=== PATIENT | male | born 1980 | race Caucasian/White ===

== ENCOUNTER 2016-12-01 10:06 | Outpatient (CLI) ==
[2014-01-11 11:22] VITALS: BMI 32.8
--- NOTE | 2016-12-01 10:30 | DI ---
EXAM: Two views of the chest. History: Cough. Comparison: Chest radiograph 01/11/2014 Findings: Heart size is within normal limits. No focal consolidation. Question small nodule within the right upper lobe versus artifact. No appreciable pleural fluid and no pneumothorax. No acute os seous abnormalities. Impression: No acute cardiopulmonary process. Question small nodule within the right upper lobe vers us artifact. If symptoms persist, recommend further evaluation with high-resolution chest CT.
[2016-12-01 10:37] LABS: BASOPHILS % (AUTO) 0.3 % (0.0-3.0); EOSINOPHILS # (AUTO) 0.1 K/ul (0.0-0.7); EOSINOPHILS % (AUTO) 0.4 % (0.0-7.0); HEMATOCRIT 44.4 % (42.0-52.0); HEMOGLOBIN 15.6 g/dl (14.0-18.0); IMMATURE GRANULOCYTE % (AUTO) 0.4 % (0.0-5.0); LYMPHOCYTES # (AUTO) 2.5 K/uL (0.60-3.4); MEAN CORPUSCULAR HEMOGLOBIN 30.1 pg (27.0-31.0); MEAN CORPUSCULAR HGB CONC 35.1 (31.8-35.4); MEAN CORPUSCULAR VOLUME 85.5 fl (80.0-94.0); MONOCYTES # (AUTO) 0.8 K/uL (0.4-2.0); MONOCYTES % (AUTO) 5.3 (0-10); NEUTROPHILS # (AUTO) 10.7 K/ul (2.0-6.9); NEUTROPHILS % (AUTO) 75.6; PLATELET COUNT 288 10^3/uL (140-440); RED BLOOD COUNT 5.19 10^6/ul (4.70-6.10); WHITE BLOOD COUNT 14.13 K/ul (4.2-10.2)
[2016-12-01 10:52] LABS: MONO INTERNAL QC INTERNAL QC VALID
[2016-12-01 11:19] LABS: ALBUMIN 4.2 g/dL (3.4-5.0); ALBUMIN/GLOBULIN RATIO 1.11; ANION GAP 14.7; BILIRUBIN,TOTAL 0.92 mg/dL (0.00-1.20); BUN/CREATININE RATIO 12.72; CHOL/HDL RATIO 3.9 (4.5-6.4); CREATININE 1.1 mg/dL (0.60-1.10); POTASSIUM 3.7 mmol/L (3.5-5.1)
[2016-12-01 12:08] LABS: FLU INTERNAL QC INTERNAL QC VALID; RAPID FLU A NEGATIVE (NEGATIVE); RAPID FLU B NEGATIVE (NEGATIVE)
== END 2016-12-01 10:07 | disposition home or self-care (01) ==
LOC: RAD 10:06
PROVIDERS: ATTEND Nurse Practitioner Family
DX: R05 Cough (principal); R50.9 Fever, unspecified; R53.83 Other fatigue; R53.1 Weakness; R11.2 Nausea with vomiting, unspecified
CPT/HCPCS: 36415; 80053; 80061; 84443; 85025; 86308; 87651; 87804; 87880

== ENCOUNTER 2017-09-21 19:31 | Emergency (ER) ==
[2017-09-21 19:34] VITALS: BP 115/78; TEMP 97.8; BMI 30.4
[2017-09-21] MEDS ORDERED: TORADOL IM STA (19:40)
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
--- NOTE | 2017-09-21 20:19 | DI ---
Exam: Right knee four view HISTORY: Right knee pain Findings / Impression: No significant bony or articular abnormality. No significant surrounding sof t tissue abnormality. Negative exam.
--- NOTE | 2017-09-21 20:22 | DI ---
Exam: Right ankle 3 views History: Injury and pain Findings/Impression: No significant aroldo or articular abnormality. Negative exam.
--- NOTE | 2017-09-21 20:24 | DI ---
Exam: Right foot three-view HISTORY: Injury and pain Findings / impression: No bony or articular abnormality. Negative exam.
== END 2017-09-21 20:34 | disposition home or self-care (01) ==
LOC: ED 19:31
DX: S93.601A Unspecified sprain of right foot, initial encounter (principal); S89.91XA Unspecified injury of right lower leg, initial encounter; W20.8XXA Other cause of strike by thrown, projected or falling object, initial encounter; F17.210 Nicotine dependence, cigarettes, uncomplicated
CPT/HCPCS: 96372; 99283

== ENCOUNTER 2017-09-29 15:45 | Outpatient (CLI) ==
--- NOTE | 2017-09-29 16:44 | US ---
EXAM: Right lower extremity venous Doppler History: Right lower extremity pain and tenderness. Technique: Multiple sonographic images through the right lower extremity were obtained. Color duple x Doppler was used to interrogate vascular flow. Findings: The right common femoral, greater saphenous, profunda, superficial femoral, popliteal, peroneal, post erior tibial and anterior tibial veins demonstrate spontaneous flow with normal compression and wolfgang l augmentation. Impression: No sonographic evidence for deep venous thrombosis.
== END 2017-09-29 15:46 | disposition home or self-care (01) ==
LOC: RAD 15:45
PROVIDERS: ATTEND Nurse Practitioner Family
DX: S89.91XA Unspecified injury of right lower leg, initial encounter (principal); M79.604 Pain in right leg; M79.89 Other specified soft tissue disorders; M79.674 Pain in right toe(s); Z72.0 Tobacco use; T14.8XXA Other injury of unspecified body region, initial encounter
CPT/HCPCS: 36415; 80053; 80061; 84550; 85025

== ENCOUNTER 2017-12-24 18:39 | Emergency (ER) ==
[2017-12-24 18:43] VITALS: BP 151/90; TEMP 99.9; BMI 24.4
[2017-12-24] MEDS ORDERED: DILAUDID 1 MG/ML SYRINGE IM STA (19:22)
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
== END 2017-12-24 19:44 | disposition home or self-care (01) ==
LOC: ED 18:39
DX: S31.139A Puncture wound of abdominal wall without foreign body, unspecified quadrant without penetration into peritoneal cavity, initial encounter (principal); W45.8XXA Other foreign body or object entering through skin, initial encounter; Z98.890 Other specified postprocedural states; F17.210 Nicotine dependence, cigarettes, uncomplicated
CPT/HCPCS: 96372; 99282

== ENCOUNTER 2018-03-16 17:08 | Emergency (ER) ==
[2018-03-16 17:14] VITALS: BP 131/85; TEMP 97.5; BMI 29.2
[2018-03-16] MEDS ORDERED: LIDOCAINE HCL 1% SDV SUBCUT STA (17:17)
--- NOTE | 2018-03-16 17:28 | ED.PDOC ---
General ED Provider: Dr. GILDA HUNTER Chief Complaint: Finger Laceration Stated Complaint: laceration left thumb and hand on palmar side Time Seen by Physician: 17:17 (see photos seen with codi at all times photos attached ) Mode of Arrival: Walk-In Information Source: Patient, Family Exam Limitations: No limitations Primary Care Provider: TACOS DRISCOLL Nursing and Triage Documentation Reviewed and Agree: Yes Does patient meet sepsis criteria?: No System Inflammatory Response Syndrome: Not Applicable Sepsis Protocol: For patient's 13 years and over: Temp is 96.8 and below OR 101 and greater Pulse >90 BPM Resp >20/minute Acutely Altered Mental Status Are patient's symptoms suggestive of a new infection, such as: -Pneumonia -Skin, Soft Tissue -Endocarditis -UTI -Bone, Joint Infection -Implantable Device -Acute Abdominal Infection -Wound Infection -Meningitis -Blood Stream Catheter Infection -Unknown Skin Complaint Exam - Lac/Torso/Upper Ext. Complaint/Exam Location of Injury: Left (hand mainly left tumb multiple puncture wound on the 3rd, 4th fonger doral left hand wnl) Mechanism of Injury: Laceration, Puncture, Abrasion (left hand ) Onset/Duration: today onset 1 hr ago Initial Severity: Mild Current Severity: Mild Aggravating: Movement Alleviating: Compression Associated Signs and Symptoms: Denies: Fever, Chills, Erythema, Numbness, Tingling Differential Diagnoses: Closed Fracture, Laceration Review of Systems - Review Of Systems Constitutional: Reports: No symptoms Eyes: Reports: No symptoms Ears, Nose, Mouth, Throat: Reports: No symptoms Respiratory: Reports: No symptoms Cardiac: Reports: No symptoms GI: Reports: No symptoms : Reports: No symptoms Musculoskeletal: Reports: No symptoms Skin: Reports: Other (laceration see photos) Neurological: Reports: No symptoms Endocrine: Reports: No symptoms Hematologic/Lymphatic: Reports: No symptoms All Other Systems: Reviewed and Negative Past Medical History - Past Medical History Previously Healthy: Yes Endocrine: Reports: None Cardiovascular: Reports: None Respiratory: Reports: None Hematological: Reports: None Gastrointestinal: Reports: None Genitourinary: Reports: None Neuro/Psych: Reports: None Musculoskeletal: Reports: None Cancer: Reports: None - Surgical History General Surgical History: Reports: None - Family History Family History: Reports: None - Social History Smoking Status: Current every day smoker, Heavy tobacco smoker Hx Substance Use: No Alcohol Screening: Occasionally - Immunizations Tetanus Shot up to Date: Yes (12/14/17) Physical Exam - Physical Exam Appearance: Well-appearing, No pain distress, Well-nourished Eyes: CAYLA, EOMI, Conjunctiva clear ENT: Ears normal, Nose normal, Oropharynx normal Respiratory: Airway patent, Breath sounds clear, Breath sounds equal, Respirations nonlabored Cardiovascular: RRR, Pulses normal, No rub, No murmur GI/: Soft, Nontender, No masses, Bowel sounds normal, No Organomegaly Musculoskeletal: Normal strength, ROM intact, No edema, No calf tenderness Skin: Warm, Dry (dorsal left thumb 1cm laceration across PIP JOINT ALL MOVEMENT OF THE INJURED HAND IS PRESERVED NO F/B NOTED ) Neurological: Sensation intact, Motor intact, Reflexes intact, Cranial nerves intact, Alert, Oriented Psychiatric: Affect appropriate, Mood appropriate Procedures - Laceration/Wound Repair No standard instances Wound Description: Linear, Joint proximity Wound Length (cm): 1.5 cm Wound Width: 2mm Wound Depth: 2mm Wound Explored: Clean Wound Irrigated: Yes Wound Prep: Saline, Hibiclens Anesthesia: Other (photos attached ) Wound Debrided: Minimal Undermining: Moderate Wound Margins: Revised, [place] border aligned, Flaps aligned Wound Repaired With: Sutures Suture Size and Type: 3 prolne Number of Sutures: 7 Number of [place]: 0 Layer Closure?: No Deep Layer Suture Size and Type: n/a Number Deep Layer Sutures: 0 Sterile Dressing Applied?: Yes Splint Applied?: Yes Type of Splint Applied: metal Sling Applied?: No Progress: the other wounds involving the hand are mainly smaller puncture wounds. the hand has W.N.L sensation/ circulation. Critical Care Note - Critical Care Note Total Time (mins): 0 Course - Course Orders, Labs, Meds: Orders Category Date Time Status Lidocaine HCl/Pf [Lidocaine HCl 1% Sdv] MEDS 03/16/18 17:17 Stat 5 ml SUBCUT ONCE STA Medications Discontinued Medications Generic Name Dose Route Start Last Admin Trade Name Freq PRN Reason Stop Dose Admin Lidocaine HCl 5 ml 03/16/18 17:17 Lidocaine Hcl 1% Sdv SUBCUT 03/16/18 17:18 ONCE STA Vital Signs: Temp Pulse Resp BP Pulse Ox 03/16/18 17:11 97.5 F L 78 20 131/85 96 Departure - Departure Time of Disposition: 06:15 Disposition: HOME SELF-CARE Discharge Problem: Laceration of finger Hand laceration Qualifiers: Encounter type: initial encounter Foreign body presence: without foreign body Laterality: left Qualified Code(s): S61.412A - Laceration without foreign body of left hand, initial encounter Instructions: Laceration (ED), Care For Your Stitches (DC), Laceration (DC) Condition: Good Pt referred to PMD for follow-up: Yes IPMP verified?: No Additional Instructions: Please call your Family Physician as soon as possible to schedule a follow-up appointment.keep the injured left hand clean. Allergies/Adverse Reactions: Allergies No Known Allergies Allergy (Verified 03/16/18 17:14) Home Medications: Ambulatory Orders Amoxicillin 500 mg PO Q8HR #21 tablet 03/16/18 Transfer Form Completed: No Disposition Discussed With: Patient
--- NOTE | 2018-03-16 18:04 | DI ---
EXAM: Three views of the left hand HISTORY: Injury left thumb with a saw TECHNIQUE: AP lateral, oblique views of the left hand were obtained. FINDINGS: No acute fractures are seen. No definite radiopaque foreign bodies are identified. There is anatomic alignment. There has been previous surgical plating of the distal radius. IMPRESSION: No acute fracture dislocation seen within the left hand.
== END 2018-03-16 18:21 | disposition home or self-care (01) ==
LOC: ED 17:08
DX: S61.012A Laceration without foreign body of left thumb without damage to nail, initial encounter (principal); S61.412A Laceration without foreign body of left hand, initial encounter; W45.8XXA Other foreign body or object entering through skin, initial encounter; F17.210 Nicotine dependence, cigarettes, uncomplicated
CPT/HCPCS: 99283

== ENCOUNTER 2018-06-18 14:44 | Outpatient (CLI) | END 2018-06-18 14:45 | disposition home or self-care (01) | LOC: CAR 14:44 | PROVIDERS: ATTEND Family Medicine | DX: F39 Unspecified mood [affective] disorder (principal) | CPT/HCPCS: 36415; 80053; 80061; 83037; 85025; 93005; 93010 ==

== ENCOUNTER 2018-06-18 15:53 | Outpatient (CLI) | END 2018-06-18 15:54 | disposition home or self-care (01) | LOC: RHC-LAB 15:53 → FCC-LAB 15:54 | PROVIDERS: ATTEND Family Medicine | DX: F39 Unspecified mood [affective] disorder (principal) | CPT/HCPCS: 36415; 80053; 80061; 83037; 85025 ==

== ENCOUNTER 2018-06-24 10:03 | Outpatient (CLI) ==
--- NOTE | 2018-06-24 10:40 | US ---
EXAM: Ultrasound abdominal wall. HISTORY: Incisional hernia without obstruction. FINDINGS / IMPRESSION: Boyd-scale ultrasound was performed in the region of interest labeled midline abdomen. No defined ventral abdominal wall herniation was seen. If concern is persistent, consider correlatio n with CT or MRI.
== END 2018-06-24 10:04 | disposition home or self-care (01) ==
LOC: RAD 10:03
PROVIDERS: ATTEND Family Medicine
DX: K43.2 Incisional hernia without obstruction or gangrene (principal)

== ENCOUNTER 2018-07-09 14:42 | Outpatient (CLI) | END 2018-07-09 14:43 | disposition home or self-care (01) | LOC: LAB 14:42 | PROVIDERS: ATTEND Family Medicine | DX: R74.0 Nonspecific elevation of levels of transaminase and lactic acid dehydrogenase [LDH] (principal); F39 Unspecified mood [affective] disorder | CPT/HCPCS: 36415; 80053; 80061 ==